=== PATIENT | female | born 1985 | race Caucasian/White ===

== ENCOUNTER → 2016-08-27 | Outpatient (CLI) | payer BC ==
--- NOTE | 2016-08-27 12:46 | MAMMOGRAPHY REPORT ---
UNILATERAL RIGHT DIGITAL DIAGNOSTIC MAMMOGRAM TOMOSYNTHESIS WITH CAD AND TARGETED RIGHT ULTRASOUND: CLINICAL HISTORY: 30-year-old woman with a history of prior reduction mammoplasty presents after her provider felt a lump in the inferior right breast on physical exam. Patient thinks this area feels l michelle scar tissue. No skin erythema or nipple discharge. No family history of breast cancer. TECHNIQUE: Right breast tomosynthesis in addition to standard 2D mammography was performed. Current mo nunez was also evaluated with a Computer Aided Detection (CAD) system. COMPARISON: Comparison is made to exams dated: 01/23/2010 ultrasound and 01/23/2010 mammogram - [facility]. BREAST COMPOSITION: There are scattered areas of fibroglandular density in the right breast. FINDINGS: A triangular skin palpable marker overlies the 6:00 posterior right breast, denoting the p alpable lump identified by the patient's provider. There is evidence of a prior reduction mammoplast y. Mild involutional changes compared to prior exams. Scattered benign coarse and rim calcification s. No suspicious mass, architectural distortion or cluster of microcalcifications is seen, with part icular attention to the area of palpable concern. Targeted ultrasound was performed in the 6:00 right breast and also the adjacent 5:00 and 7:00 axes n ear the area of palpable lump pointed out by the patient. There is sonographically normal tissue wit hout evidence of a suspicious solid or cystic mass. IMPRESSION: ACR BI-RADS CATEGORY 2: BENIGN, TARGETED ULTRASOUND ACR BI-RADS CATEGORY 2: BENIGN There is no mammographic or targeted sonographic evidence of malignancy. No suspicious mammographic or sonographic abnormality to explain the palpable lump in the 6:00 right breast identified by the abhishek lin's provider. Therefore, clinical follow-up is recommended as biopsy of a clinically suspicious mass should not be precluded by negative imaging. These results and recommendations were discussed with the patient at the time of the exam. Approximately 10% of breast cancers are not detected with mammography. A negative mammographic report should not delay biopsy if a clinically suggestive mass is present. Nikole Jim M.D. ay/:08/27/2016 10:12:09 [employer] Worker: Sulema [email or web address])(Kelly), [facility] letter sent: Normal 1/2 BI-RADS Code: ACR BI-RADS Category 2: Benign Ultrasound BI-RADS: ACR BI-RADS Category 2: Benign
== END | disposition home or self-care (01) ==
LOC: C.MAMM 09:34
PROVIDERS: ATTEND Physician Assistant
DX: N63 Unspecified lump in breast (principal)